=== PATIENT | male | born 1955 | race American Indian/Alaskan Native ===

== ENCOUNTER 2021-05-18 10:20 | Emergency (ER) | payer BC, MEDICARE ==
[2021-05-18 10:36] VITALS: BP 140/89
[2021-05-18] MEDS ORDERED: traMADol 50 MG TAB PO ONE (11:12)
--- NOTE | 2021-05-18 11:42 | Emergency Department Report ---
ED Extremity Problem HPI - General Chief complaint: Back Pain/Injury Stated complaint: BACK PAIN /HIP PAIN Time Seen by Provider: 05/18/21 11:04 Source: patient Mode of arrival: Wheelchair Limitations: No Limitations - History of Present Illness Initial comments: The patient was evaluated in the emergency department for symptoms described in the history of present illness. He/she was evaluated in the context of the global COVID-19 pandemic, which necessitated consideration that the patient might be at risk for infection with the virus that causes COVID-19. Institutional protocols and algorithms that pertain to the evaluation of patients at risk for COVID-19 are in a state of rapid change based on information released by regulatory bodies including the CDC and federal and state organizations. These policies and algorithms were followed during the patient's care in the emergency department. Please note that these policies, procedures and recommendations changed on a rapid basis. 66-year-old -[place] male presents to the emergency room planing of back pain yesterday and left hip pain today. Patient denies any recent trauma. 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 He reports points to his left hip on the lateral side that is painful. He is currently on Plavix atorvastatin metoprolol omeprazole. He states he has a history of a blood clot and stents in his heart. Patient reports that he has a history of acid reflux cholesterol issues hypertension. States he was seen by Dr. Garcia. Is a surgical history of a right total hip replacement and right shoulder surgery. He denies any dysuria denies any hematuria denies any dark urine. He reports he is not a IV drug user and has not been on steroids. He denies any fever no unexplained weight loss and no history of any cancers. MD Complaint: extremity pain Onset/Timin -: days(s), Last night Location: left Severity scale (0 -10): 10 - Related Data Previous Rx's Medication Instructions Recorded Last Taken Type Aspirin [Aspirin BABY CHEW TAB] 81 mg PO QDAY #100 tab.chew 05/06/18 Unknown Rx AtorvaSTATin [Lipitor] 80 mg PO QHS #30 tablet 05/06/18 Unknown Rx Cyclobenzaprine [Flexeril 10 MG 5 mg PO TID PRN #60 tablet 05/06/18 Unknown Rx TAB] Famotidine [Pepcid] 20 mg PO BID #60 tablet 05/06/18 Unknown Rx Metoprolol [Lopressor TAB] 25 mg PO BID #60 tablet 05/06/18 Unknown Rx Prasugrel [Effient] 10 mg PO QDAY #30 tablet 05/06/18 Unknown Rx oxyCODONE /ACETAMINOPHEN [Percocet 1 tab PO Q6H PRN #15 tablet 05/06/18 Unknown Rx 5/325 mg] traMADoL [Ultram 50 MG tab] 50 mg PO Q6HR PRN #12 tablet 05/18/21 Unknown Rx Allergies Allergy/AdvReac Type Severity Reaction Status Date / Time No Known Allergies Allergy Verified 05/13/18 09:43 ED Review of Systems ROS: Stated complaint: BACK PAIN /HIP PAIN Other details as noted in HPI ED Past Medical Hx - Past Medical History Hx Hypertension: No Hx Heart Attack/AMI: Yes (04/2018) - Surgical History Additional Surgical History: right hip replacement 2010,cyst on vocal cords 2008 - Social History Smoking Status: Former Smoker - Medications Home Medications: Home Medications Medication Instructions Recorded Confirmed Last Taken Type Aspirin [Aspirin BABY CHEW TAB] 81 mg PO QDAY #100 tab.chew 05/06/18 Unknown Rx AtorvaSTATin [Lipitor] 80 mg PO QHS #30 tablet 05/06/18 Unknown Rx Cyclobenzaprine [Flexeril 10 MG 5 mg PO TID PRN #60 tablet 05/06/18 Unknown Rx TAB] Famotidine [Pepcid] 20 mg PO BID #60 tablet 05/06/18 Unknown Rx Metoprolol [Lopressor TAB] 25 mg PO BID #60 tablet 05/06/18 Unknown Rx Prasugrel [Effient] 10 mg PO QDAY #30 tablet 05/06/18 Unknown Rx oxyCODONE /ACETAMINOPHEN [Percocet 1 tab PO Q6H PRN #15 tablet 05/06/18 Unknown Rx 5/325 mg] traMADoL [Ultram 50 MG tab] 50 mg PO Q6HR PRN #12 tablet 05/18/21 Unknown Rx ED Physical Exam - General Limitations: No Limitations General appearance: alert, in no apparent distress - Head Head exam: Present: atraumatic, normocephalic - Eye Eye exam: Present: normal appearance - ENT ENT exam: Present: mucous membranes moist - Neck Neck exam: Present: normal inspection, full ROM - Respiratory Respiratory exam: Present: normal lung sounds bilaterally. Absent: respiratory distress - Cardiovascular Cardiovascular Exam: Present: regular rate, normal rhythm. Absent: systolic murmur, diastolic murmur, rubs, gallop - GI/Abdominal GI/Abdominal exam: Present: soft, normal bowel sounds - Extremities Exam Extremities exam: Present: normal inspection - Expanded Lower Extremity Exam Left Hip exam: Present: normal inspection, full ROM, tenderness. Absent: swelling, deformity, crepidus, dislocation Upper Leg exam: Present: normal inspection, full ROM Knee exam: Present: normal inspection, full ROM Lower Leg exam: Present: normal inspection Ankle exam: Present: normal inspection, full ROM Foot/Toe exam: Present: normal inspection Neuro vascular tendon exam: Present: no vascular compromise Gait: Positive: observed and normal - Back Exam Back exam: Present: normal inspection - Neurological Exam Neurological exam: Present: alert, oriented X3, normal gait - Expanded Neurological Exam Expanded Cranial nerves: EOM's Intact: Normal, Gag Reflex: Normal, Tongue Deviation: Normal, Nystagmus: Normal, Facial Sensation: Normal, Facial Palsy with Forehead Movement: Normal, Facial Palsy without Forehead Movement: Normal Cerebellar function: Finger to Nose: Normal, Heel to Blue: Normal, Romberg: Normal Upper motor neuron: Gus Neglect: Normal, Pronator Drift: Normal, Babinski Sign: Normal, Sensory Extinction: Normal Sensory exam: Upper Extremity Light Touch: Normal, Upper Extremity Pin Prick: Normal, Upper Extremity Temperature: Normal, UE 2 Point Discrimination: Normal, Lower Extremity Light Touch: Normal, Lower Extremity Pin Prick: Normal, Lower Extremity Temperature: Normal, LE 2 Point Discrimination: Normal Motor strength exam: RUE: 4, LUE: 4, RLE: 4, LLE: 4 DTR: bicep (R): 0, bicep (L): 0, tricep (R): 0, tricep (L): 0, knee (R): 0, knee (L): 0, ankle (R): 0, ankle (L): 0 Best Eye Response ([place]): (4) open spontaneously Best Motor Response ([place]): (6) obeys commands Best Verbal Response ([place]): (5) oriented [place] Total: 15 - Psychiatric Psychiatric exam: Present: normal affect, normal mood - Skin Skin exam: Present: warm, dry, intact, normal color. Absent: rash ED Course Vital Signs 05/18/21 10:35 Temperature 98.8 F Pulse Rate 59 L Respiratory 18 Rate Blood Pressure 140/89 [Right] O2 Sat by Pulse 100 Oximetry ED Medical Decision Making - Radiology Data Radiology results: report reviewed [facility] [address] [place] [address] XRay Report Signed Patient: CHRISTOPHER LIMA MR#: [id number] : 1955 Acct:[id number] Age/Sex: 66 / M ADM Date: 05/18/21 Loc: ED Attending Dr: Ordering Physician: GALILEO JORGENSEN Date of Service: 05/18/21 Procedure(s): XR hip 2-3V LT Accession Number(s): [id number] cc: GALILEO JORGENSEN Fluoro Time In Minutes: Left hip radiograph, 3 views HISTORY: Left hip pain and tenderness COMPARISON: None FINDINGS: Marked left hip osteoarthritis. No acute fracture or dislocation. Right hip arthroplasty appears intact. No hardware complication. Prominent heterotopic ossification about the right hip. No focal soft tissue abnormality. IMPRESSION: Marked left hip arthritis. No acute process. Signer Name: Kehinde Eckert MD Signed: 05/18/2021 11:42 AM Workstation Name: [id number] Transcribed By: JS Dictated By: KEHINDE ECKERT MD Electronically Authenticated By: KEHINDE ECKERT MD Signed Date/Time: 05/18/21 1142 DD/ 1140 TD/TT: Print Cancel - Medical Decision Making 66-year-old -[place] male presents to the emergency room planing of back pain yesterday and left hip pain today. Patient denies any recent trauma. 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 He reports points to his left hip on the lateral side that is painful. He is currently on Plavix atorvastatin metoprolol omeprazole. He states he has a history of a blood clot and stents in his heart. Patient reports that he has a history of acid reflux cholesterol issues hypertension. States he was seen by Dr. Garcia. Is a surgical history of a right total hip replacement and right shoulder surgery. He denies any dysuria denies any hematuria denies any dark urine. He reports he is not a IV drug user and has not been on steroids. He denies any fever no unexplained weight loss and no history of any cancers. X-ray is negative for any acute fracture does show marked osteoarthritis. Will give tramadol 50 mg p.o. patient is to follow-up with his primary care provider. Critical care attestation.: If time is entered above; I have spent that time in minutes in the direct care of this critically ill patient, excluding procedure time. ED Disposition Clinical Impression: Osteoarthritis of left hip Disposition: HOME / SELF CARE / HOMELESS Is pt being admited?: No Does the pt Need Aspirin: No Condition: Stable Instructions: Preventing Osteoarthritis, Adult, Arthritis, Agns-wh-Mpwm, Tramadol tablets Additional Instructions: X-ray of left hip shows marked osteoarthritis. I recommend to take pain medication as needed. Do not operate heavy machinery while taking tramadol. Are also recommended she follow-up with your primary care provider and orthopedic provider. Prescriptions: traMADoL [Ultram 50 MG tab] 50 mg PO Q6HR PRN #12 tablet PRN Reason: Pain Referrals: Your, primary care provider [Other] - 3-5 Days Your, orthopedic provider [Other] - 3-5 Days Forms: Work/School Release Form(ED)
--- NOTE | 2021-05-18 11:46 | XRay Report ---
Left hip radiograph, 3 views HISTORY: Left hip pain and tenderness COMPARISON: None FINDINGS: Marked left hip osteoarthritis. No acute fracture or dislocation. Right hip arthroplasty appears inta ct. No hardware complication. Prominent heterotopic ossification about the right hip. No focal soft t issue abnormality. IMPRESSION: Marked left hip arthritis. No acute process. Signer Name: Td Eckert MD Signed: 05/18/2021 11:42 AM Workstation Name: [id number]
== END 2021-05-18 13:57 | disposition home or self-care (01) ==
LOC: ED 10:20
DX: M16.12 Unilateral primary osteoarthritis, left hip (principal); Z96.641 Presence of right artificial hip joint; Z98.890 Other specified postprocedural states; F17.209 Nicotine dependence, unspecified, with unspecified nicotine-induced disorders
CPT/HCPCS: 99283

== ENCOUNTER 2021-07-04 14:02 | Outpatient (CLI) | payer MEDICARE ==
--- NOTE | 2021-07-04 16:09 | XRay Report ---
Lumbar spine-7 views INDICATION: BACK PAIN. COMPARISON: None. IMPRESSION: Minimal levoscoliosis centered at L1 with normal AP alignment. Mild superior endplate we dging at L2 with no acute fracture line identified. 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 Severe degenerative arthrosis noted in the left hip as we ll. No acute osseous or soft tissue abnormality. Signer Name: Derrick Avendano MD Signed: 07/04/2021 4:04 PM Workstation Name: [id number]
== END 2021-07-04 14:03 | disposition home or self-care (01) ==
LOC: XRAY 14:02
PROVIDERS: ATTEND Orthopaedic Surgery
DX: M47.817 Spondylosis without myelopathy or radiculopathy, lumbosacral region (principal); M16.12 Unilateral primary osteoarthritis, left hip; M41.9 Scoliosis, unspecified
CPT/HCPCS: 72114

== ENCOUNTER 2021-11-04 11:20 | Observation (INO) | payer MEDICARE ==
[2021-10-29 10:36] LABS: Hematocrit 41.9 % (35.5-45.6); Hemoglobin 13.4 gm/dl (11.8-15.2); Mean Corpuscular HGB Conc 32 % (32-34); Mean Corpuscular Volume 105 fl (84-94); Platelet Count 124 K/mm3 (140-440); Red Blood Count 3.97 M/mm3 (3.65-5.03); Red Cell Distribution Width 14.5 % (13.2-15.2)
[2021-10-29 10:48] LABS: BUN/Creatinine Ratio 18; Blood Urea Nitrogen 14 mg/dL (9-20); Calcium 9.5 mg/dL (8.4-10.2); Hemolysis Index 2
--- NOTE | 2021-10-31 08:47 | Anesthesia Day of Surgery ---
Anesthesia Day of Surgery - Day of Surgery Patient Examined: Yes Patient H&P Reviewed: Yes Patient is NPO: Yes Beta Blockers: Yes Cardiac Clearance: Yes
--- NOTE | 2021-10-31 08:48 | Anesthesia Consultation ---
Anesthesia Consult and Med Hx Date of service: 10/31/21 - Airway Anesthetic Teeth Evaluation: Good, Bridges ROM Head & Neck: Adequate Mental/Hyoid Distance: Adequate Mallampati Class: Class II Intubation Access Assessment: Good - Pre-Operative Health Status ASA Pre-Surgery Classification: ASA3 Proposed Anesthetic Plan: General - Pulmonary Hx Smoking: Yes (STOPPED AT AGE 29 YRS OLD) Hx Sleep Apnea: No (CHANI PRE SCREEN HIGH RISK) - Cardiovascular System Hx Hypertension: Yes (2018) Hx Coronary Artery Disease: Yes (+Cardiac clearance) Hx Heart Attack/AMI: Yes (2018. Stents) Hx Angina: Yes Hx Percutaneous Transluminal Coronary Angioplasty (PTCA): Yes (04/2018 - RCA, Circumflex, LAD) - Central Nervous System Hx Back Pain: Yes - Gastrointestinal Hx Gastroesophageal Reflux Disease: Yes (Occasional) - Hematic Hx Anemia: No Hx Sickle Cell Disease: No - Other Systems Hx Alcohol Use: Yes (2-3 SHOTS PER DAY) Hx Substance Use: No Hx Cancer: No Hx Obesity: No
[~2021-11-04 11:20] MED LIST: ACETAMINOPHEN 325 MG TAB ONE; ACETAMINOPHEN 325 MG TAB PO ONE; CELECOXIB 200 MG CAP PO NR; CITRIC ACID-SOD CITRATE 500 ML IV ONE; GABAPENTIN 300 MG CAP PO NR; HYDROmorphone 1 MG/1 ML INJ IV PRN; LACTATED RINGERS 1,000 ML IV ONE; LACTATED RINGERS 1,000 ML ONE; MAGNESIUM OXIDE 400 MG TAB PO ONE; MIDAZOLAM 2 MG/2 ML INJ IV NR; ONDANSETRON 4 MG/2 ML INJ IV PRN; ceFAZolin/STERILE WATER 2 GM/20 ML SYRINGE IV NR; ceFAZolin/Water 2 GM/20 ML 2 GM/20 ML SYRINGE IV NR
[2021-11-04] MEDS ORDERED: ONDANSETRON 4 MG/2 ML INJ IV PRN (11:42)
[2021-11-04] MEDS ORDERED: HYDROmorphone 1 MG/1 ML INJ IV PRN (11:42)
--- NOTE | 2021-11-04 11:42 | Anesthesia Day of Surgery ---
Anesthesia Day of Surgery - Day of Surgery Patient Examined: Yes Patient H&P Reviewed: Yes Patient is NPO: Yes
[2021-11-04] MEDS ORDERED: LACTATED RINGERS 1,000 ML ONE ×2 (11:53→16:24)
[2021-11-04] MEDS ORDERED: ceFAZolin/Water 2 GM/20 ML 2 GM/20 ML SYRINGE IV ONE (12:19)
[2021-11-04] MEDS ORDERED: ACETAMINOPHEN 325 MG TAB ONE (12:19)
[2021-11-04] MEDS ORDERED: CELECOXIB 200 MG CAP ONE (12:19)
[2021-11-04] MEDS ORDERED: propofoL 200 MG/20 ML VIAL IV ONE (12:25)
[2021-11-04] MEDS ORDERED: MAGNESIUM OXIDE 400 MG TAB PO ONE (13:00)
[2021-11-04] MEDS ORDERED: ACETAMINOPHEN 325 MG TAB PO ONE (13:00)
[2021-11-04] MEDS ORDERED: GABAPENTIN 300 MG CAP PO NR (13:00)
[2021-11-04] MEDS ORDERED: BUPIVACAINE/PF (0.25%) 2.5 MG/ML 30 ML VIAL INFILTRATI ONE (13:11)
[2021-11-04] MEDS ORDERED: dexAMETHasone 4 MG/ML VIAL ONE (13:11)
[2021-11-04] MEDS ORDERED: MIDAZOLAM 2 MG/2 ML INJ ONE ×2 (13:15→13:27)
[2021-11-04] MEDS ORDERED: fentaNYL 100 MCG/2 ML INJ ONE (13:15)
[2021-11-04] MEDS ORDERED: ePHEDrine SULFATE 50 MG/1 ML INJ ONE (14:07)
[2021-11-04] MEDS ORDERED: CITRIC ACID-SOD CITRATE 500 ML IV ONE (14:20)
[2021-11-04] MEDS ORDERED: ceFAZolin 1 GM VIAL ONE (14:49)
[2021-11-04] MEDS ORDERED: dexAMETHasone 20 MG/5 ML VIAL ONE (15:35)
[2021-11-04] MEDS ORDERED: KETOROLAC 30 MG/1 ML INJ ONE (15:35)
[2021-11-04] MEDS ORDERED: KETAMINE/STERILE WATER 50 MG/ML SYRINGE ONE (15:36)
[2021-11-04] MEDS ORDERED: ceFAZolin 1 GM VIAL IV ONE (15:37)
[2021-11-04] MEDS ORDERED: TRANEXAMIC ACID 1,000 MG/10 ML ONE (16:07)
[2021-11-04] MEDS ORDERED: ONDANSETRON 4 MG/2 ML INJ ONE (16:23)
[2021-11-04] MEDS ORDERED: LIDOCAINE MPF (2%) 20 MG/1 ML VIAL 5 ML ONE (16:23)
[2021-11-04] MEDS ORDERED: SODIUM CHLORIDE 0.9% 100 ML ONE (16:24)
[2021-11-04] MEDS ORDERED: SUGAMMADEX SODIUM 200 MG/2 ML VIAL IV ONE (16:28)
[2021-11-04] MEDS ORDERED: BUPIVACAINE/PF (0.5%) 5 MG/1 ML 10 ML VIAL INFILTRATI ONE ×2 (16:35→17:35)
[2021-11-04] MEDS: HYDROmorphone 1 MG/1 ML INJ IV PRN ×4 (17:15→17:45)
[2021-11-04] MEDS ORDERED: oxyCODONE /ACETAMINOPHEN 5-325MG TAB PO PRN (17:23)
[2021-11-04] MEDS ORDERED: oxyCODONE 5 MG TAB PO PRN (17:23)
[2021-11-04] MEDS ORDERED: ACETAMINOPHEN 325 MG TAB PO PRN (17:23)
[2021-11-04] MEDS ORDERED: TRANEXAMIC ACID 1,000 MG/10 ML IV ONE (17:34)
[2021-11-04] MEDS ORDERED: SODIUM CHLORIDE 0.9% IRR 1,500 ML BOTTLE IR ONE (17:35)
--- NOTE | 2021-11-04 18:01 | Operative Report ---
Operative Report Operative Report: OPERATIVE REPPORT Preop diagnosis : Osteoarthritis, left hip Postop diagnosis: Osteoarthritis, LEFT hip Procedure: Elective total hip replacement, LEFT hip Surgeon: Anuel Altamirano MD assistant men's lacrosse coach: Dr. Kwon Anesthesia: General with ETT Details of operative technique: The patient was brought to the operating room having been cleared for surgery. He was prepared in the usual fashion per total hip protocol and then underwent satisfactory general anesthesia. He was placed in the decubitus position with the left hip up and all pressure points were well-padded. An axillary roll was placed under the right axilla and the hip was prepped and draped in the usual sterile fashion with ChloraPrep solution. Ancef 2 g was administered IV at the start of the case. Space suits were worn by the operating room team. A timeout was then called by the circulating nurse and once again the correct site was identified. The hip was opened through a standard anterolateral approach. Bleeders were clamped and cauterized with the Bovie. Dissection was carried down through the fibrofatty layer and the tensor fascia heron was split the length of the incision. A Charnley retractor was placed and the hip was externally rotated. The gluteus medius and minimus were then removed from the bone leaving a good cuff of tissue for repair. Capsule was excised and retractors were placed at the acetabular perimeter. Femoral head which was severely deformed, was removed after dislocation and this revealed severe arthritis. The acetabulum showed significant changes of osteoarthritis with fibrous tissue infiltration. A template was utilized to make a neck cut with the oscillating saw. Attention was then turned toward the socket. Labral tissue and capsular remnants were completely removed and the boundaries of the socket were delineated. The socket was then deepened and expanded up to a size 48 mm. Patient was noted to have excellent bone with good cancellous bleeding. A 48 mm /3-hole acetabular coated shell made by [employer] (48 mm outside diameter 32 mm inside diameter) was then impacted in place with excellent interference fit. To ensure stability of the cup, a single 5 mm diameter x30 mm length cancellous screw was placed through one of the superior lateral holes in the cup. Attention was then redirected to the proximal femur . The leg was flexed up and placed into the sterile bag. A box osteotome was utilized to create a lateral s tarting point and the canal was then reamed beginning with a starter reamer and progressing up to a size #12. Proximal femur was then broached up to a size #12 as well. Trial reduction was then carried out utilizing the broach. Excellent press-fit stability was obtained. The actual Synergy femoral component (size 12) was then impacted in place. Again excellent stability was achieved. The ne ck had a standard offset with a +4 neck length with the 32 mm Oxinium head ; this was impacted in place and the hip was reduced and there was noted excellent yazdanism of leg lengths with normal stability. The hip proved to have excellent stability with the hip flexed to 90 degrees and external rotation as well as full extension with anterior rotation. The shuck test was also negative. Wound was then irrigated copiously with antibiotic solution. Closure was then begun by reattaching the gluteus medius and minimus utilizing #2 Ethibond suture. Tensor fascia was then repaired with a running locking suture of 0 Vicryl , and the subcu layer was closed with 0 and 2-0 Vicryl in layers. The skin was reapproximated with ulises. An Aquacel dressing was then applied. The patient was then awakened and taken to recovery room in good condition. Estimated blood loss: 700 cc Replacement: 250 cc (Cell Saver); 1500 cc IV fluid Drains : None Complications: None
--- NOTE | 2021-11-04 18:08 | XRay Report ---
PELVIS 1 VIEW(S) INDICATION / CLINICAL INFORMATION: POST OP COMPARISON: 05/18/2021 FINDINGS: Left hip arthroplasty has been placed with satisfactory postoperative radiographic appearance. Previously placed right hip arthroplasty appears unchanged. There is a screw in the right iliac bone. Signer Name: Dany Mccarty MD Signed: 11/04/2021 6:04 PM Workstation Name: [id number]
[2021-11-04] MEDS ORDERED: ONDANSETRON 4 MG ODT TAB PO PRN (18:11)
[2021-11-04] MEDS: D5W/LACTATED RINGERS 1,000 ML IV SCH (18:41)
--- NOTE | 2021-11-04 19:18 | Post Anesthesia Evaluation ---
- Post Anesthesia Evaluation Patient Participated: Yes Airway Patent: Yes Stable Respiratory Function: Yes Nausea/Vomiting: No Temp > 96.8F: Yes Pain Manageable: Yes Adequeate Hydration: Yes Anesthesia Complications: No Block Receding Appropriately: Yes Patient on Ventilator: No
[2021-11-04 23:55] LABS: Hematocrit 34.2 % (35.5-45.6); Hemoglobin 11.3 gm/dl (11.8-15.2); Mean Corpuscular HGB Conc 33 % (32-34); Mean Corpuscular Volume 105 fl (84-94); Platelet Count 115 K/mm3 (140-440); Red Blood Count 3.26 M/mm3 (3.65-5.03); Red Cell Distribution Width 14.6 % (13.2-15.2)
[2021-11-05 00:07] LABS: INR 1.11 (0.87-1.13); Partial Thromboplastin Time 25.8 Sec. (24.2-36.6)
[2021-11-05 04:42] LABS: Eosinophils % (Auto) 0.1 % (0.0-4.3); Hematocrit 32.4 % (35.5-45.6); Hemoglobin 10.5 gm/dl (11.8-15.2); Lymphocytes # (Auto) 1.2 K/mm3 (1.2-5.4); Lymphocytes % (Auto) 18.8 % (13.4-35.0); Mean Corpuscular HGB Conc 32 % (32-34); Mean Corpuscular Volume 104 fl (84-94); Monocytes # (Auto) 0.2 K/mm3 (0.0-0.8); Platelet Count 104 K/mm3 (140-440); Red Blood Count 3.12 M/mm3 (3.65-5.03); Red Cell Distribution Width 14.5 % (13.2-15.2)
[2021-11-05] MEDS: D5W/LACTATED RINGERS 1,000 ML IV SCH (05:38)
[2021-11-05] MEDS ORDERED: APIXABAN 2.5 MG TAB PO ONE (08:00)
--- NOTE | 2021-11-05 10:59 | Post Anesthesia Evaluation ---
- Post Anesthesia Evaluation Patient Participated: Yes Airway Patent: Yes Stable Respiratory Function: Yes Nausea/Vomiting: No Pain Manageable: Yes Adequeate Hydration: Yes Anesthesia Complications: No Block Receding Appropriately: Yes Patient on Ventilator: No
[2021-11-05] MEDS: oxyCODONE /ACETAMINOPHEN 5-325MG TAB PO PRN ×2 (11:59→21:23)
--- NOTE | 2021-11-05 16:34 | Progress Note ---
Subjective Date of service: 11/05/21 Interval history: POD #1 S: Postop day following total hip arthroplasty, left hip. Patient is lying supine in bed still having significant postoperative pain that is being controlled with IV and p.o. medication. Only one PT session to date and has not been cleared. Otherwise doing well except for expected postoperative pain. O: Left LE is equal length with the opposite lower extremity; mild swelling proximal femur left hip. Dressing on proximal wound shows no drainage and is intact. Distal dressing also shows nice occlusive bandage without significant drainage. Able to do straight leg raise with assistance. Neurovascularly intact A: Satisfactory postop course, postop day #1 for THR Left hip P: 1. continue with postop physical therapy as directed per THR protocol with protected weightbearing at all times and partial weightbearing; safety precautions. Continue with DVT prophylaxis as directed and will continue at home for 5 weeks. 2. He is certainly unable to be discharged home today as he is only had 1 PT session and still having significant postoperative pain. He has not been cleared for ADLs or for independent transfers/ambulation. May be able to be discharged home within the next 24 hours following 1 or 2 more sessions with physical therapy. Pain level following the surgery drop significantly after 48 hours . Objective Vital signs: Vital Signs - 12hr 11/05/21 11/05/21 11/05/21 04:38 07:09 09:54 Temperature 98.0 F Pulse Rate 90 Respiratory 16 Rate Blood Pressure 95/70 O2 Sat by Pulse 97 97 96 Oximetry - Labs CBC & BMP: 11/05/21 04:25 11/04/21 23:42 Labs: Abnormal lab results 11/04/21 11/04/21 11/05/21 Range/Units 23:42 23:42 04:25 RBC 3.26 L 3.12 L (3.65-5.03) M/mm3 Hgb 11.3 L 10.5 L (11.8-15.2) gm/dl Hct 34.2 L 32.4 L (35.5-45.6) % MCV 105 H 104 H (84-94) fl MCH 35 H 34 H (28-32) pg Plt Count 115 L 104 L (140-440) K/mm3 Seg Neutrophils % 78.1 H (40.0-70.0) % PT 15.6 H (12.2-14.9) Sec.
[2021-11-05] MEDS: APIXABAN 2.5 MG TAB PO SCH (21:14)
[2021-11-06 05:26] LABS: Hematocrit 27.3 % (35.5-45.6); Hemoglobin 9.1 gm/dl (11.8-15.2); Mean Corpuscular HGB Conc 33 % (32-34); Mean Corpuscular Volume 103 fl (84-94); Platelet Count 100 K/mm3 (140-440); Red Blood Count 2.64 M/mm3 (3.65-5.03); Red Cell Distribution Width 14.6 % (13.2-15.2)
[2021-11-06 06:21] VITALS: BP 109/59
--- NOTE | 2021-11-06 09:16 | Progress Note ---
Subjective Date of service: 11/06/21 Interval history: PROGRESS NOTE S: POD #2` ; patient lying in bed alert , no acute distress. No new complaints except for postoperative pain; O: Leg lengths are equal; mild swelling proximal femur left hip. Dressing on proximal wound shows minimal drainage and is intact. Able to do straight leg raise with assistance. Neurovascularly intact A: Satisfactory postop course, postop day #2 for THR Left hip P: 1. continue with postop physical therapy as directed per THR protocol with protected weightbearing at all times and partial weightbearing; safety precautions. Continue with DVT prophylaxis as directed and will continue at home for 5 weeks. May be discharged home today . 2. Home health RN for wound care; 3. Home PT for cont'd therapy/gait training; 4. office in 2 weeks Objective Vital signs: Vital Signs - 12hr 11/05/21 11/05/21 11/06/21 21:41 21:45 05:04 Temperature 98.0 F 98.2 F Pulse Rate 76 70 Respiratory 20 20 Rate Blood Pressure 117/74 109/59 O2 Sat by Pulse 97 97 95 Oximetry - Labs CBC & BMP: 11/06/21 04:53 11/04/21 23:42 Labs: Abnormal lab results 11/06/21 Range/Units 04:53 RBC 2.64 L (3.65-5.03) M/mm3 Hgb 9.1 L (11.8-15.2) gm/dl Hct 27.3 L (35.5-45.6) % MCV 103 H (84-94) fl MCH 34 H (28-32) pg Plt Count 100 L (140-440) K/mm3
[2021-11-06] MEDS ORDERED: APIXABAN 2.5 MG TAB PO SCH (10:00)
[2021-11-06] MEDS ORDERED: METOPROLOL TARTRATE 25 MG TAB PO SCH (10:00)
[2021-11-06] MEDS ORDERED: CLOPIDOGREL 75 MG TAB PO SCH (10:00)
[2021-11-06] MEDS ORDERED: ASPIRIN 81 MG TAB CHEW PO SCH (10:00)
[2021-11-06] MEDS: APIXABAN 2.5 MG TAB PO SCH (10:06)
[2021-11-06] MEDS: oxyCODONE /ACETAMINOPHEN 5-325MG TAB PO PRN (14:41)
== END 2021-11-06 17:40 | disposition home health service (06) ==
LOC: OR 11:20 → 3A 17:23 → INTOOBSV 17:23
PROVIDERS: ADMIT Orthopaedic Surgery; ATTEND Orthopaedic Surgery
DX: M16.12 Unilateral primary osteoarthritis, left hip (principal); Z20.822 Contact with and (suspected) exposure to COVID-19
CPT/HCPCS: 27130; 36415; 64450; 72170; 80048; 82565; 85025; 85027; 85610; 85730; 86850; 86900; 86901; 88304; 88311; 94760; 97110; 97116; 97162; 97530; C1776; G0378; J0690; J1100; J1170; J1885; J2250; J2405; J2704; J3010; J3490; J7120; J7121; U0003; J7060

== ENCOUNTER 2021-12-19 10:34 | Outpatient (CLI) | payer MEDICARE ==
--- NOTE | 2021-12-19 14:49 | XRay Report ---
PELVIS ONE VIEW INDICATION: PAIN IN LEFT HIP [id number].[id number]. COMPARISON: None. IMPRESSION: Bilateral hip arthroplasties are present and not significantly changed since 11/04/2021. There appears to be lucency surrounding the acetabular component of the right hip replacement which c ould indicate loosening. There are also moderate heterotopic calcifications surrounding the right hip prosthesis. No acute pelvic fracture or diastasis is appreciated. Signer Name: Timothy Funk Jr, MD Signed: 12/19/2021 2:44 PM Workstation Name: [id number]
== END 2021-12-19 10:35 | disposition home or self-care (01) ==
LOC: XRAY 10:34
PROVIDERS: ATTEND Orthopaedic Surgery
DX: M25.852 Other specified joint disorders, left hip (principal); Z96.653 Presence of artificial knee joint, bilateral
CPT/HCPCS: 72170